=== PATIENT | male | born 1955 | race African-American/Black ===

== ENCOUNTER 2017-07-01 09:39 | Inpatient (IN) | payer MEDICARE, MEDICAID ==
[~2017-07-01] VITALS: Ht 177.8 cm; Wt 53.8 kg
[2017-07-01 10:37] LABS: Basophils # (auto) 0 uL; Basophils % (auto) 0.4 % (0.0-2.0); Eosinophils # (auto) 0 uL; Eosinophils % (auto) 0.1 % (0.0-7.0); Hematocrit 31.2 % (41.0-53.0); Hemoglobin 10.1 g/dL (13.5-17.5); Lymphocytes # (auto) 0.2 uL; Mean Corpuscular Hemoglobin 30.7 pg (28.0-32.0); Mean Corpuscular Hgb Conc. 32.5 g/dL (32.0-36.0); Mean Corpuscular Volume 94.6 fL (80.0-100.0); Monocytes # (auto) 1.1 uL; Monocytes % (auto) 13.5 % (0.0-12.0); Neutrophils # (auto) 6.7 uL; Platelet Count (auto) 194 10^3/uL (140-450); Red Cell Distribution Width 15.4 % (11.8-14.3); White Blood Cell 8.1 10^3/uL (4.4-10.8)
[2017-07-01 10:48] LABS: Albumin 2.4 g/dL (3.4-5.0); BUN/Creatinine Ratio 12.9; Potassium 3.4 mmol/L (3.5-5.1); Total Protein 7.1 g/dL (6.4-8.2)
[2017-07-01 11:30] LABS: Amylase 25 U/L (25-115); Lipase 22 U/L (73-393)
[2017-07-01] MEDS ORDERED: ASPirin 81 mg TAB PO ONE (12:00)
[2017-07-01 12:11] LABS: Urine Blood 2+ /uL (Negative); Urine Specific Gravity 1.008 (1.001-1.035); Urine WBC 14716 /hpf (0 - 3)
[2017-07-01 12:23] LABS: Urine Bacteria MANY /hpf (None Seen)
[2017-07-01] MEDS ORDERED: ENOXAPARIN SOD 60 MG/0.6 ML SYRINGE SC ONE (13:15)
[2017-07-01] MEDS ORDERED: metroNIDAZOLE 500MG/100ML 100 ML IV ONE (13:15)
[2017-07-01 14:10] LABS: Lactic Acid w/Reflex 2.7 mmol/L (0.4-2.0)
[2017-07-01] MEDS ORDERED: cefTRIAXone 1GM/10ml IVPUSH 10 ML IV ONE (16:45)
[2017-07-01] MEDS ORDERED: ACETAMINOPHEN 500 MG TAB PO PRN (16:45)
[2017-07-01] MEDS ORDERED: NITROGLYCERIN 0.4 MG SL TAB SL PRN (16:45)
[2017-07-01] MEDS ORDERED: MORPHINE SULFATE 4 MG/ML SYR/VIAL IV PRN ×2 (16:45)
[2017-07-01] MEDS ORDERED: LORazepam 0.5 MG TAB PO PRN (16:45)
[2017-07-01] MEDS ORDERED: TEMAZEPAM 15 MG CAP PO PRN (16:45)
[2017-07-01] MEDS ORDERED: PROMETHAZINE HCL 25 MG/ML 1ML IV PRN (16:45)
[2017-07-01] MEDS ORDERED: CODE60TA PO (17:09)
[2017-07-01] MEDS ORDERED: FURO20TA PO (17:10)
[2017-07-01] MEDS ORDERED: LABETALOL HCL 5 MG/ML ML 20ML VIAL IV ONE (17:15)
[2017-07-01] MEDS ORDERED: METOPROLOL TARTRATE 25 MG TAB PO ONE (17:15)
[2017-07-01] MEDS ORDERED: LABETALOL HCL 5 MG/ML ML 20ML VIAL IV PRN ×2 (17:15)
[2017-07-01] MEDS ORDERED: METOPROLOL TARTRATE 25 MG TAB PO SCH (17:15)
[2017-07-01] MEDS: NITROGLYCERIN 0.2MG/HR TOPICAL PATCH TD SCH (17:52)
[2017-07-01 18:34] LABS: Hematocrit 28.4 % (41.0-53.0); Hemoglobin 9.3 g/dL (13.5-17.5)
[2017-07-01 18:54] LABS: INR 1.2 (0.9-1.15); Partial Thromboplastin Time 30.1 sec (22.64-33.71); Prothrombin Time 13.1 sec (9.37-12.3)
[2017-07-01 19:05] LABS: CRP High Sensitivity 18.9 mg/dL (< 0.3)
[2017-07-01 19:06] LABS: Alcohol, Urine < 3.0 mg/dL (0-5); Amphetamine Screen, Urine NEGATIVE (NEGATIVE); Barbiturate Scree,Urine NEGATIVE (NEGATIVE); Benzodiazephine Screen, Urine NEGATIVE (NEGATIVE); Cannabinoid Screen, Urine NEGATIVE (NEGATIVE); Cocaine Screen, Urine NEGATIVE (NEGATIVE); Opiate Scree,Urine POSITIVE (NEGATIVE); Phencyclidine Screen, Urine NEGATIVE (NEGATIVE)
[2017-07-01] MEDS: CODEINE SULFATE PO SCH (22:00)
[2017-07-01] MEDS: METOPROLOL TARTRATE 25 MG TAB PO SCH (22:00)
[2017-07-01] MEDS: ATORVASTATIN 20 MG TAB PO SCH (22:00)
[2017-07-02 02:12] LABS: Hematocrit 30.3 % (41.0-53.0)
[2017-07-02 07:17] LABS: Basophils # (auto) 0.1 uL; Basophils % (auto) 1.3 % (0.0-2.0); Eosinophils # (auto) 0 uL; Eosinophils % (auto) 0.4 % (0.0-7.0); Hematocrit 25.7 % (41.0-53.0); Hemoglobin 8.7 g/dL (13.5-17.5); Lymphocytes # (auto) 0.2 uL; Lymphocytes % (auto) 3.1 % (10.0-50.0); Mean Corpuscular Hemoglobin 31.5 pg (28.0-32.0); Mean Corpuscular Hgb Conc. 33.7 g/dL (32.0-36.0); Mean Corpuscular Volume 93.6 fL (80.0-100.0); Monocytes % (auto) 14.7 % (0.0-12.0); Neutrophils # (auto) 5.7 uL; Neutrophils % (auto) 80.5 % (37.0-80.0); Nucleated Red Blood Cells % 0.1 %; Platelet Count (auto) 185 10^3/uL (140-450); Red Blood Cells 2.75 10^6/uL (4.5-5.90); Red Cell Distribution Width 14.9 % (11.8-14.3); White Blood Cell 7.1 10^3/uL (4.4-10.8)
[2017-07-02 08:14] LABS: BUN/Creatinine Ratio 15.5; Bilirubin, Total 1.4 mg/dL (0.2-1.0); Calcium 7.2 mg/dL (8.5-10.1); Potassium 3.4 mmol/L (3.5-5.1); Total Protein 6.1 g/dL (6.4-8.2)
[2017-07-02] MEDS: cefTRIAXone 1GM/10ml IVPUSH 10 ML IV SCH (09:48)
[2017-07-02] MEDS: NITROGLYCERIN 0.2MG/HR TOPICAL PATCH TD SCH (09:48)
[2017-07-02] MEDS: ASPirin 81 mg TAB PO SCH (09:48)
[2017-07-02] MEDS: METOPROLOL TARTRATE 25 MG TAB PO SCH ×2 (09:48→21:32)
[2017-07-02] MEDS: ENOXAPARIN SOD 60 MG/0.6 ML SYRINGE SC SCH (09:48)
[2017-07-02] MEDS: PANTOPRAZOLE 40 MG TAB PO SCH (09:48)
[2017-07-02] MEDS: CODEINE SULFATE PO SCH ×2 (09:49→22:00)
[2017-07-02] MEDS: ATORVASTATIN 20 MG TAB PO SCH (21:32)
[2017-07-02 22:30] VITALS: BP 143/87
[2017-07-02 22:40] VITALS: BP 143/87
[2017-07-03 05:00] VITALS: BP 160/91
[2017-07-03 07:08] LABS: Basophils # (auto) 0 uL; Eosinophils # (auto) 0.1 uL; Hemoglobin 8.4 g/dL (13.5-17.5); Monocytes # (auto) 0.9 uL; Red Blood Cells 2.64 10^6/uL (4.5-5.90); White Blood Cell 7.1 10^3/uL (4.4-10.8)
[2017-07-03 07:10] LABS: Basophils % (auto) 0.2 % (0.0-2.0); Hematocrit 24.3 % (41.0-53.0); Lymphocytes # (auto) 0.2 uL; Lymphocytes % (auto) 3.4 % (10.0-50.0); Mean Corpuscular Hemoglobin 31.6 pg (28.0-32.0); Mean Corpuscular Hgb Conc. 34.4 g/dL (32.0-36.0); Mean Corpuscular Volume 91.9 fL (80.0-100.0); Monocytes % (auto) 12.3 % (0.0-12.0); Neutrophils # (auto) 5.9 uL; Neutrophils % (auto) 83.1 % (37.0-80.0); Nucleated Red Blood Cells % 0.1 %; Platelet Count (auto) 191 10^3/uL (140-450); Red Cell Distribution Width 14.7 % (11.8-14.3)
[2017-07-03 07:11] LABS: % Iron Saturation 7.3 % (20-55); Albumin 1.9 g/dL (3.4-5.0); Calcium 6.9 mg/dL (8.5-10.1); Potassium 3.7 mmol/L (3.5-5.1)
[2017-07-03 07:15] LABS: Bilirubin, Total 0.6 mg/dL (0.2-1.0)
[2017-07-03 08:06] LABS: Immunoglobulin G, Serum 1544 mg/dL (700-1600)
[2017-07-03 09:00] VITALS: BP 144/71
[2017-07-03] MEDS: cefTRIAXone 1GM/10ml IVPUSH 10 ML IV SCH (09:22)
[2017-07-03] MEDS: ASPirin 81 mg TAB PO SCH (09:23)
[2017-07-03] MEDS: ENOXAPARIN SOD 60 MG/0.6 ML SYRINGE SC SCH (09:23)
[2017-07-03] MEDS: METOPROLOL TARTRATE 25 MG TAB PO SCH ×2 (09:23→22:04)
[2017-07-03] MEDS: PANTOPRAZOLE 40 MG TAB PO SCH (09:23)
[2017-07-03] MEDS: NITROGLYCERIN 0.2MG/HR TOPICAL PATCH TD SCH (09:30)
[2017-07-03] MEDS: CODEINE SULFATE PO SCH ×2 (10:00→22:04)
[2017-07-03 13:00] VITALS: BP 139/68
[2017-07-03 17:00] VITALS: BP 148/75
[2017-07-03 22:00] VITALS: BP 145/66
[2017-07-03] MEDS ORDERED: ENOXAPARIN SOD 60 MG/0.6 ML SYRINGE SC SCH (22:00)
[2017-07-03] MEDS: ATORVASTATIN 20 MG TAB PO SCH (22:04)
[2017-07-04 05:00] VITALS: BP 146/73
[2017-07-04 06:34] LABS: Basophils # (auto) 0 uL; Eosinophils # (auto) 0 uL; Hemoglobin 7.9 g/dL (13.5-17.5); Lymphocytes # (auto) 0.3 uL; Mean Corpuscular Hemoglobin 31.5 pg (28.0-32.0); Neutrophils # (auto) 5.1 uL; White Blood Cell 6.4 10^3/uL (4.4-10.8)
[2017-07-04 06:37] LABS: Basophils % (auto) 0.4 % (0.0-2.0); Eosinophils % (auto) 0.6 % (0.0-7.0); Hematocrit 23.3 % (41.0-53.0); Lymphocytes % (auto) 4.1 % (10.0-50.0); Mean Corpuscular Volume 92.6 fL (80.0-100.0); Monocytes % (auto) 15.4 % (0.0-12.0); Neutrophils % (auto) 79.5 % (37.0-80.0); Platelet Count (auto) 201 10^3/uL (140-450); Red Blood Cells 2.52 10^6/uL (4.5-5.90); Red Cell Distribution Width 14.9 % (11.8-14.3)
[2017-07-04 06:47] LABS: BUN/Creatinine Ratio 14.5; Calcium 6.9 mg/dL (8.5-10.1); Potassium 3.8 mmol/L (3.5-5.1)
[2017-07-04 08:09] VITALS: BP 146/75
[2017-07-04 08:50] LABS: Ferritin 110.9 ng/mL (10-322)
[2017-07-04 09:08] LABS: Folate (Folic Acid) 17.13 ng/mL (5.38-24)
[2017-07-04] MEDS: PANTOPRAZOLE 40 MG TAB PO SCH (10:00)
[2017-07-04] MEDS: NITROGLYCERIN 0.2MG/HR TOPICAL PATCH TD SCH (10:00)
[2017-07-04] MEDS: cefTRIAXone 1GM/10ml IVPUSH 10 ML IV SCH (10:45)
[2017-07-04] MEDS: ASPirin 81 mg TAB PO SCH (10:45)
[2017-07-04] MEDS: METOPROLOL TARTRATE 25 MG TAB PO SCH ×2 (10:46→22:10)
[2017-07-04] MEDS: HYDROcodone-ACET 5/325MG TAB PO PRN ×2 (11:17→20:29)
[2017-07-04 11:43] VITALS: BP 164/76
[2017-07-04] MEDS: SODIUM FERR GLUC 62.5MG/5ML 125 MG in SODIUM CHL 0.9% 100 ML IV SCH (12:00)
[2017-07-04] MEDS ORDERED: CYANOCOBALAMIN (B-12) 1000 MCG/1 ML VIAL SUBCUT ONE (12:45)
[2017-07-04] MEDS: CODEINE SULFATE PO SCH ×2 (13:43→22:15)
[2017-07-04] MEDS: BACLOFEN 10 MG TAB PO PRN ×2 (13:44→22:16)
[2017-07-04 16:12] VITALS: BP 133/61
[2017-07-04 22:00] VITALS: BP 150/81
[2017-07-04] MEDS: ATORVASTATIN 20 MG TAB PO SCH (22:09)
[2017-07-04] MEDS ORDERED: CYANOCOBALAMIN (B-12) 1000 MCG/1 ML VIAL SUBCUT SCH (23:15)
[2017-07-05 05:56] VITALS: BP 133/72
[2017-07-05] MEDS: HYDROcodone-ACET 5/325MG TAB PO PRN (06:41)
[2017-07-05 07:31] LABS: BUN/Creatinine Ratio 13.3; Calcium 7.8 mg/dL (8.5-10.1); Potassium 4.2 mmol/L (3.5-5.1)
[2017-07-05 07:41] LABS: Basophils # (auto) 0 uL; Basophils % (auto) 0.4 % (0.0-2.0); Eosinophils # (auto) 0 uL; Eosinophils % (auto) 0.5 % (0.0-7.0); Hematocrit 29.7 % (41.0-53.0); Hemoglobin 9.8 g/dL (13.5-17.5); Lymphocytes # (auto) 0.4 uL; Lymphocytes % (auto) 5.1 % (10.0-50.0); Mean Corpuscular Hemoglobin 30.6 pg (28.0-32.0); Mean Corpuscular Volume 92.7 fL (80.0-100.0); Monocytes # (auto) 1.1 uL; Monocytes % (auto) 14.6 % (0.0-12.0); Neutrophils # (auto) 5.7 uL; Neutrophils % (auto) 79.4 % (37.0-80.0); Platelet Count (auto) 274 10^3/uL (140-450); Red Blood Cells 3.21 10^6/uL (4.5-5.90); White Blood Cell 7.2 10^3/uL (4.4-10.8)
[2017-07-05 08:31] LABS: Folate (Folic Acid) 18.07 ng/mL (5.38-24)
[2017-07-05 09:00] VITALS: BP 156/75
[2017-07-05] MEDS: cefTRIAXone 1GM/10ml IVPUSH 10 ML IV SCH (10:50)
[2017-07-05] MEDS ORDERED: ADENOSINE 47 MG in GIVE UN-DILUTED 0 ML IV ONE (12:00)
[2017-07-05] MEDS: SODIUM FERR GLUC 62.5MG/5ML 125 MG in SODIUM CHL 0.9% 100 ML IV SCH (12:00)
[2017-07-05 12:06] VITALS: BP 122/99
[2017-07-05 13:00] VITALS: BP 136/78
[2017-07-05] MEDS: ASPirin 81 mg TAB PO SCH (13:55)
[2017-07-05] MEDS: NITROGLYCERIN 0.2MG/HR TOPICAL PATCH TD SCH (13:56)
[2017-07-05] MEDS: PANTOPRAZOLE 40 MG TAB PO SCH (13:56)
[2017-07-05] MEDS: FOLIC ACID 1 MG TAB PO SCH (13:56)
[2017-07-05] MEDS: CYANOCOBALAMIN 500 MCG TAB PO SCH (13:56)
[2017-07-05] MEDS: METOPROLOL TARTRATE 25 MG TAB PO SCH ×2 (13:57→21:44)
[2017-07-05] MEDS: BACLOFEN 10 MG TAB PO PRN ×2 (14:32→22:53)
[2017-07-05] MEDS: CODEINE SULFATE PO SCH ×2 (14:33→21:44)
[2017-07-05 16:49] VITALS: BP 137/74
[2017-07-05] MEDS: BOOST PLUS 8 ounce PO SCH (17:57)
[2017-07-05] MEDS: PRO-STAT 64 30ML PO SCH (17:58)
[2017-07-05] MEDS: ATORVASTATIN 20 MG TAB PO SCH (21:44)
[2017-07-05 22:00] VITALS: BP 139/67
[2017-07-06 05:28] VITALS: BP 135/65
[2017-07-06 07:53] LABS: BUN/Creatinine Ratio 12.5; Calcium 7.6 mg/dL (8.5-10.1); Potassium 4.4 mmol/L (3.5-5.1)
[2017-07-06 09:00] VITALS: BP 136/67
[2017-07-06] MEDS ORDERED: FER325T PO (09:36)
[2017-07-06] MEDS ORDERED: CYAN500T2 PO (09:36)
[2017-07-06] MEDS ORDERED: ATOR20TA50 PO (09:36)
[2017-07-06] MEDS ORDERED: MET25T PO (09:36)
[2017-07-06] MEDS ORDERED: ASPI81CH43 PO (09:36)
[2017-07-06] MEDS ORDERED: LEVO250T45 PO (09:39)
[2017-07-06] MEDS: cefTRIAXone 1GM/10ml IVPUSH 10 ML IV SCH (10:25)
[2017-07-06] MEDS: PANTOPRAZOLE 40 MG TAB PO SCH (10:26)
[2017-07-06] MEDS: FOLIC ACID 1 MG TAB PO SCH (10:26)
[2017-07-06] MEDS: BOOST PLUS 8 ounce PO SCH (10:26)
[2017-07-06] MEDS: ASPirin 81 mg TAB PO SCH (10:26)
[2017-07-06] MEDS: CYANOCOBALAMIN 500 MCG TAB PO SCH (10:26)
[2017-07-06] MEDS: NITROGLYCERIN 0.2MG/HR TOPICAL PATCH TD SCH (10:26)
[2017-07-06] MEDS: METOPROLOL TARTRATE 25 MG TAB PO SCH (10:27)
[2017-07-06] MEDS: PRO-STAT 64 30ML PO SCH (10:27)
[2017-07-06] MEDS: CODEINE SULFATE PO SCH (11:09)
[2017-07-06 13:00] VITALS: BP 142/71
== END 2017-07-06 16:30 | disposition home health service (06) | DRG 871 ==
LOC: ER 09:43 → TELE 09:44 → TELE-CENTR 07-02 23:35
PROVIDERS: ADMIT Internal Medicine; ATTEND Internal Medicine
DX: A41.51 Sepsis due to Escherichia coli [E. coli] (principal); E43 Unspecified severe protein-calorie malnutrition; N17.0 Acute kidney failure with tubular necrosis; I42.9 Cardiomyopathy, unspecified; E86.9 Volume depletion, unspecified; N13.30 Unspecified hydronephrosis; N13.8 Other obstructive and reflux uropathy; N30.01 Acute cystitis with hematuria; Z68.1 Body mass index [BMI] 19.9 or less, adult; N18.3 Chronic kidney disease, stage 3 (moderate); N40.1 Benign prostatic hyperplasia with lower urinary tract symptoms; B19.20 Unspecified viral hepatitis C without hepatic coma; K52.9 Noninfective gastroenteritis and colitis, unspecified; D63.8 Anemia in other chronic diseases classified elsewhere; D50.9 Iron deficiency anemia, unspecified; E53.8 Deficiency of other specified B group vitamins; G89.29 Other chronic pain; I25.10 Atherosclerotic heart disease of native coronary artery without angina pectoris; N30.91 Cystitis, unspecified with hematuria; Z85.71 Personal history of Hodgkin lymphoma; Z90.79 Acquired absence of other genital organ(s); Z88.0 Allergy status to penicillin
CPT/HCPCS: 36415; 36600; 71046; 71250; 74176; 76775; 78452; 80048; 80053; 80061; 80307; 81001; 82150; 82270; 82378; 82550; 82607; 82728; 82746; 82784; 82805; 82962; 83010; 83540; 83550; 83605; 83615; 83690; 84154; 84484; 85014; 85018; 85025; 85045; 85379; 85610; 85652; 85730; 86141; 86880; 87040; 87077; 87086; 87088; 87186; 87493; 93005; 93017; 93306; 93970; 96365; 96366; 96372; 96375; 99291; J0153; J3490